=== PATIENT | male | born 1935 | race Caucasian/White ===

== ENCOUNTER 2019-01-20 13:24 | Emergency (ER) | payer MEDICARE, OTHER ==
[2019-01-20 14:20] LABS: Hemoglobin 13.4 g/dL (14.0-18.0); Mean Corpuscular HGB CONC 33.1 g/dL (32.0-36.0); Mean Corpuscular Hemoglobin 33.2 pg (27.0-31.0); Platelet Count 176 thou/uL (130-400); RBC Distribution Width 11.5 % (11.5-14.5); Red Blood Cell (RBC) Count 4.04 mill/uL (4.70-6.10); White Blood Cell (WBC) Count 7.9 thou/uL (4.8-10.8)
[2019-01-20 14:31] LABS: #Basophils 0.1 thou/uL (0.0-0.2); #Eosinphils 0.4 thou/uL (0.0-0.7); #Lymphocytes 1.9 thou/uL (1.20-3.40); #Monocytes 0.5 thou/uL (0.11-0.59); %Basophils 1.3 % (0.0-1.0); %Eosinophils 4.7 % (0.0-10.0); %Lymphocytes 23.9 % (21.0-51.0); %Monocytes 6.4 % (0.0-10.0); %Neutrophils 63.7 % (42.0-75.0); Large Platelets SLIGHT; MDiff Complete? YES
[2019-01-20 14:32] LABS: Platelet Morphology Comment Appears Adequate
[2019-01-20 14:51] LABS: ALT (SGPT) 10 U/L (8-55); AST (SGOT) 11 U/L (5-34); Albumin 3.6 g/dL (3.4-4.8); Alkaline Phosphatase 55 U/L (40-110); Anion Gap 13 mmol/L (10-20); BUN (Urea Nitrogen) 17 mg/dL (8.4-25.7); Bilirubin, Total 2.6 mg/dL (0.2-1.2); Calc. Creatinine Clearance 0 mL/min (70-130); Calcium 9.2 mg/dL (7.8-10.44); Carbon Dioxide 26 mmol/L (23-31); Chloride 104 mmol/L (98-107); Estimated GFR-MDRD 88; Globulin 2.8 g/dL (2.4-3.5); Glucose 104 mg/dL (83-110); Lipase 7 U/L (8-78); Potassium 4.1 mmol/L (3.5-5.1); Protein, Total 6.4 g/dL (5.8-8.1); Sodium 139 mmol/L (136-145)
--- NOTE | 2019-01-20 15:11 | CT ---
CT Head without IV contrast COMPARISON: 09/06/2015 HISTORY: Altered mental status TECHNIQUE: Axial CT imaging at 5 mm intervals from vertex through skull base without contrast FINDINGS: There is no evidence of an acute infarction, hemorrhage, mass effect, or midline shift. There is decr eased attenuation seen in the periventricular white matter which is nonspecific but likely attributable to chronic small vessel ischemic changes. 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 There is mild cerebral volume loss. A madison cisterna magna is again seen. The ventricular system is normal in size, shape, and position for the degree of sulcal atrophy. There is stable opacification of the right ethmoidal air cell. Remaining visualized paranasal sinuses and mastoid air cells are clear. Osseous structures appear intact. IMPRESSION: 1. No acute intracranial abnormality demonstrated. 2. Stable chronic changes.
--- NOTE | 2019-01-20 15:25 | RAD ---
CHEST 1 VIEW PORTABLE: Date: 01/20/19 HISTORY: Cough and weakness, dehydration. COMPARISON: 09/06/15. FINDINGS: Left-sided pleural calcified plaques. Heart size is within normal limits. Arthrosis and degenerative changes are noted of both shoulders with evidence for chronic left rotator cuff abnormality. No confl uent pneumonia, overt edema, or pleural effusion. IMPRESSION: Stable chronic left-sided pleural calcification. No evidence for pneumonia, edema, or other acute pro cess. Atherosclerosis of aorta. POS: [facility]
--- NOTE | 2019-01-20 15:58 | ULT ---
Right upper quadrant ultrasound: 01/20/2019 COMPARISON: None HISTORY: Right upper quadrant pain TECHNIQUE: Multiplanar grayscale sonographic imaging of the right upper quadrant provided. FINDINGS: The pancreas is obscured by bowel gas. The hepatic parenchyma is heterogeneous and echogenic, suggesting hepatocellular disease, such as hep atic steatosis. There is no gallbladder wall thickening or pericholecystic fluid. No shadowing gallstones are noted w ithin the gallbladder lumen. There are a few subtle small nonshadowing echogenic foci within the gallbladder which may be associated with nonshadowing stones or sludge. Right kidney measures 9.9 cm in craniocaudal dimension and demonstrates no evidence for stone, mass, or hydronephrosis. The co founder & ceo reports a negative Knight's sign. The common bile duct measures 4 mm, within normal limits. IMPRESSION: No sonographic evidence of acute cholecystitis or biliary dilatation.
[2019-01-20 16:01] LABS: Bilirubin Small (Negative); Blood, Urine Trace (Negative); Clarity Clear (Clear); Glucose, Urine (Dipstick) Negative (Negative); Leukocyte Negative (Negative); Nitrite Negative (Negative); Protein, Urine (Dipstick) Negative (Neg-Trace)
[2019-01-20 16:06] LABS: Bacteria/HPF None Seen HPF (None Seen); Squamous Epithelial 0-3 HPF (0-3); WBC/HPF 0-3 HPF (0-3)
== END 2019-01-20 17:00 | disposition left against medical advice (07) ==
LOC: SCSER 13:24
DX: E80.6 Other disorders of bilirubin metabolism (principal); I63.9 Cerebral infarction, unspecified; G81.90 Hemiplegia, unspecified affecting unspecified side; F91.9 Conduct disorder, unspecified
CPT/HCPCS: 70450; 71045; 76705; 80053; 81003; 81015; 83605; 83690; 85025; 93005; 96360

== ENCOUNTER 2022-07-25 09:31 | Observation (INO) | payer MEDICARE ==
[2022-07-24 16:56] VITALS: BMI 25.0
[2022-07-25] MEDS ORDERED: Sodium Chloride 0.9% 100 ML ONE (11:25)
[2022-07-25] MEDS ORDERED: CEFAZOLIN 2 GM VIAL ONE (11:25)
[2022-07-25] MEDS ORDERED: PROPOFOL 200 MG/20 ML VIAL ONE (11:45)
[2022-07-25] MEDS ORDERED: Ketamine 50 MG/ML (10ML VIAL) ONE (11:48)
[2022-07-25] MEDS ORDERED: Ondansetron PF 4 MG/2 ML Vial IVP PRN (12:26)
[2022-07-25 13:16] LABS: #Basophils 0.1 thou/uL (0.0-0.2); #Eosinphils 0.3 thou/uL (0.0-0.7); #Lymphocytes 1.8 thou/uL (1.20-3.40); #Monocytes 0.9 thou/uL (0.11-0.59); #Neutrophils 7.6 thou/uL (1.40-6.50); %Basophils 0.6 % (0.0-1.0); %Eosinophils 3.2 % (0.0-10.0); %Lymphocytes 16.7 % (21.0-51.0); %Monocytes 8.5 % (0.0-10.0); Hemoglobin 12.7 g/dL (14.0-18.0); Mean Corpuscular HGB CONC 32.9 g/dL (32.0-36.0); Mean Corpuscular Hemoglobin 33.6 pg (27.0-31.0); Mean Platelet Volume 10.5 fL (7.4-10.4); Platelet Count 163 10x3/uL (130-400); RBC Distribution Width 12.1 % (11.5-14.5); Red Blood Cell (RBC) Count 3.78 mill/uL (4.70-6.10); White Blood Cell (WBC) Count 10.7 10x3/uL (4.8-10.8)
[2022-07-25 13:32] LABS: INR-International Normal Ratio 1.4; PTT 29.5 sec (22.9-36.1); Prothrombin Time 18.1 sec (12.0-14.7)
[2022-07-25 13:37] LABS: ALT (SGPT) 15 U/L (8-55); AST (SGOT) 20 U/L (5-34); Albumin 2.6 g/dL (3.4-4.8); Alkaline Phosphatase 70 U/L (40-110); Anion Gap 12 mmol/L (10-20); BUN (Urea Nitrogen) 19 mg/dL (8.4-25.7); Bilirubin, Total 2.5 mg/dL (0.2-1.2); Calc. Creatinine Clearance 70 mL/min (70-130); Calcium 8.5 mg/dL (7.8-10.44); Carbon Dioxide 31 mmol/L (23-31); Chloride 103 mmol/L (98-107); Estimated GFR 79; Globulin 3.7 g/dL (2.4-3.5); Glucose 109 mg/dL (83-110); Magnesium 1.5 mg/dL (1.6-2.6); Potassium 2.7 mmol/L (3.5-5.1); Protein, Total 6.3 g/dL (5.8-8.1); Sodium 143 mmol/L (136-145)
[2022-07-25] MEDS ORDERED: FENTANYL 50 MCG/ML 1 ML VIAL ONE (14:03)
[2022-07-25] MEDS ORDERED: Potassium Chloride 20 MEQ TAB PO SCH (15:15)
[2022-07-25] MEDS ORDERED: Nystatin Powder 15 GM BOT TOP PRN (15:26)
[2022-07-25] MEDS: Magnesium 2 GM/50 ML(in water) 2 GM in Premix Bag 1 BAG IVPB SCH ×2 (16:58→21:05)
[2022-07-25 18:20] LABS: Phosphorus 2.1 mg/dL (2.3-4.7)
[2022-07-25] MEDS: Potassium Chloride 20 MEQ in Premix Bag 1 BAG IVPB SCH (18:46)
[2022-07-25] MEDS ORDERED: Atorvastatin Calcium 20 MG TAB PO SCH (21:00)
[2022-07-25 21:05] VITALS: TEMP 97.5
[2022-07-25] MEDS: PHOS-NAK 1 PKT PACK PO SCH (21:05)
[2022-07-25 21:42] LABS: Anion Gap 12 mmol/L (10-20); BUN (Urea Nitrogen) 17 mg/dL (8.4-25.7); Calc. Creatinine Clearance 76 mL/min (70-130); Calcium 8.5 mg/dL (7.8-10.44); Carbon Dioxide 33 mmol/L (23-31); Chloride 103 mmol/L (98-107); Estimated GFR 83; Glucose 109 mg/dL (83-110); Potassium 3.2 mmol/L (3.5-5.1); Sodium 145 mmol/L (136-145)
[2022-07-26] MEDS: Potassium Chloride 20 MEQ in Premix Bag 1 BAG IVPB SCH (00:25)
[2022-07-26 05:51] LABS: Bacteria/HPF None Seen HPF (None Seen); Bilirubin Negative (Negative); Blood, Urine Negative (Negative); Clarity Clear (Clear); Glucose, Urine (Dipstick) Normal (Negative); Ketone, Urine Negative (Negative); Leukocyte Negative Leu/uL (Negative); Nitrite Negative (Negative); Protein, Urine (Dipstick) 10 mg/dL (Neg-Trace); RBC/HPF 0-3 HPF (0-3); Specific Gravity, Urine 1.024 (1.002-1.036); Squamous Epithelial 0-3 HPF (0-3); WBC/HPF 0-3 HPF (0-3)
[2022-07-26 07:10] LABS: #Basophils 0.1 thou/uL (0.0-0.2); #Eosinphils 0.3 thou/uL (0.0-0.7); #Lymphocytes 1.8 thou/uL (1.20-3.40); #Monocytes 0.7 thou/uL (0.11-0.59); #Neutrophils 7.9 thou/uL (1.40-6.50); %Basophils 0.5 % (0.0-1.0); %Eosinophils 3.2 % (0.0-10.0); %Lymphocytes 16.8 % (21.0-51.0); %Monocytes 6.2 % (0.0-10.0); %Neutrophils 73.4 % (42.0-75.0); Hemoglobin 12.1 g/dL (14.0-18.0); Mean Corpuscular HGB CONC 32.4 g/dL (32.0-36.0); Mean Corpuscular Hemoglobin 33.5 pg (27.0-31.0); Mean Platelet Volume 10.6 fL (7.4-10.4); Platelet Count 195 10x3/uL (130-400); RBC Distribution Width 12.2 % (11.5-14.5); White Blood Cell (WBC) Count 10.8 10x3/uL (4.8-10.8)
[2022-07-26 07:28] LABS: Phosphorus 2.3 mg/dL (2.3-4.7)
[2022-07-26 07:32] LABS: ALT (SGPT) 12 U/L (8-55); AST (SGOT) 26 U/L (5-34); Albumin 2.8 g/dL (3.4-4.8); Alkaline Phosphatase 73 U/L (40-110); Anion Gap 11 mmol/L (10-20); BUN (Urea Nitrogen) 17 mg/dL (8.4-25.7); Bilirubin, Direct 0.8 mg/dL (0.1-0.3); Bilirubin, Total 2.6 mg/dL (0.2-1.2); Calc. Creatinine Clearance 77 mL/min (70-130); Calcium 8.4 mg/dL (7.8-10.44); Carbon Dioxide 31 mmol/L (23-31); Chloride 105 mmol/L (98-107); Estimated GFR 84; Glucose 106 mg/dL (83-110); Magnesium 2.6 mg/dL (1.6-2.6); Potassium 3.4 mmol/L (3.5-5.1); Protein, Total 6.3 g/dL (5.8-8.1); Sodium 144 mmol/L (136-145)
[2022-07-26] MEDS ORDERED: Potassium Chloride 20 MEQ TAB PO SCH (08:00)
[2022-07-26 08:54] VITALS: BP 110/53
[2022-07-26] MEDS ORDERED: Furosemide 40 MG TAB PO SCH (09:00)
[2022-07-26] MEDS ORDERED: FLU VACC QS2022-23(65YR UP)/PF 240 MCG/0.7 ML SYRINGE IM ONE (09:00)
[2022-07-26] MEDS ORDERED: Tamsulosin HCl 0.4 MG CAP PO SCH (09:00)
[2022-07-26] MEDS ORDERED: Digoxin 0.125 MG TAB PO SCH (09:00)
[2022-07-26] MEDS: PHOS-NAK 1 PKT PACK PO SCH ×2 (10:33→14:17)
[2022-07-27] MEDS ORDERED: Apixaban 5 MG TAB PO SCH (21:00)
== END 2022-07-26 19:55 | disposition home or self-care (01) ==
LOC: SDC 09:31 → SURG A 12:27
PROVIDERS: ADMIT Family Medicine; ATTEND Family Medicine
PROC: 0DH63UZ Insertion of Feeding Device into Stomach, Percutaneous Approach (ICD-10-PCS; principal; 2022-07-25)
DX: E44.0 Moderate protein-calorie malnutrition (principal); K22.2 Esophageal obstruction; K31.7 Polyp of stomach and duodenum; K44.9 Diaphragmatic hernia without obstruction or gangrene; R05.9 Cough, unspecified; E87.6 Hypokalemia; E83.42 Hypomagnesemia; E83.39 Other disorders of phosphorus metabolism; I48.20 Chronic atrial fibrillation, unspecified; I50.22 Chronic systolic (congestive) heart failure; N40.0 Benign prostatic hyperplasia without lower urinary tract symptoms; I69.351 Hemiplegia and hemiparesis following cerebral infarction affecting right dominant side; E80.6 Other disorders of bilirubin metabolism; Z68.25 Body mass index [BMI] 25.0-25.9, adult; Z23 Encounter for immunization; Z66 Do not resuscitate; Z79.01 Long term (current) use of anticoagulants; Z79.899 Other long term (current) drug therapy; Z88.8 Allergy status to other drugs, medicaments and biological substances
CPT/HCPCS: 43246; 71045; 80048 ×2; 80053; 80076; 81001; 83735 ×2; 84100 ×2; 85025 ×2; 85610; 85730; 86850; 86900; 86901; 90662; 93005; 97112; G0008; J3010; 36415; 90471; 93010; 96374; 96375; 96376; G0378; J2704; J3475; J3480; J3490